=== PATIENT | male | born 2000 | race Two or more races ===

== ENCOUNTER 2019-11-13 15:39 | Emergency (ER) | payer MEDICAID ==
[2019-11-13] MEDS ORDERED: KETOROLAC 60 MG/2 ML VIAL IM STA (16:05)
--- NOTE | 2019-11-13 16:08 | ED Physician Documentation ---
PD HPI HEENT - Stated complaint Stated Complaint: MOUTH PX, SELBY - Chief complaint Chief Complaint: Heent - History obtained from History obtained from: Patient - History of Present Illness Timing - onset: How many weeks ago (3-4) Timing - duration: Weeks (3-4) Timing - details: Gradual onset Location: Tooth, Other (Headache) Associated symptoms: Trismus, Facial swelling (Intermittent), Headache. No: Fever, Congestion, Rhinorrhea Recently seen: Not recently seen - Additional information Additional information: This is a 19-year-old presents with complaints that he has a headache and tooth pain to the point that he cannot eat or sleep for the past several nights. He has been having trouble with his teeth for 3 weeks to a month he has been taking Advil and "basic painkillers" that has not seemed to help at all. He has a chipped tooth on his right bottom ridge. He also noted some bruising to the gums on the left side he does not know where that came from. Patient had a Put on a left mandibular molar several years ago. He subsequently developed kind of a cyst or pimple on the left jawline they tried to do surgery on it at [facility] but it is been persistently draining since that time and that is been about 2 years. He is never followed back up with a dentist or had further imaging done on his jaw since then. He does have a history of migraines but says this headache is different migraines are always on the right side this is gone across the back of his neck. Has not been nauseous or had any vomiting. No fever. [place] a little lightheaded and almost passed out in the shower this morning. Review of Systems Constitutional: denies: Fever Eyes: denies: Loss of vision Ears: reports: Loss of hearing (States he has difficulty hearing out of the left ear.) Nose: denies: Rhinorrhea / runny nose, Congestion Throat: reports: Dental pain / toothache GI: denies: Nausea, Vomiting Musculoskeletal: reports: Neck pain Neurologic: reports: Near syncope PD PAST MEDICAL HISTORY - Past Surgical History Past Surgical History: No - Present Medications Home Medications: Ambulatory Orders Medication Instructions Recorded Confirmed Amoxicillin 500 mg PO TID #30 capsule 11/13/19 Cyclobenzaprine [Flexeril] 10 mg PO TID PRN #10 tablet 11/13/19 - Allergies Allergies/Adverse Reactions: Allergies Allergy/AdvReac Type Severity Reaction Status Date / Time No Known Drug Allergies Allergy Verified 11/13/19 15:46 - Social History Does the pt smoke?: No Smoking Status: Never smoker Does the pt drink ETOH?: No Does the pt have substance abuse?: No - Immunizations Immunizations are current?: Yes - POLST Patient has POLST: No PD ED PE NORMAL - Vitals Vital signs reviewed: Yes - General General: Alert and oriented X 3, No acute distress, Well developed/nourished - HEENT HEENT: Atraumatic, PERRL, EOMI, Ears normal, Moist mucous membranes, Other (Patient has enlarged tonsils but there is no erythema or exudate. There is a chipped molar on the right third from the back that has a filling in it. The there is a left molar third from the back of the mandibular ridge that has a cap on it and there is a lot of gingival inflammation and swelling adjacent to the And there is some purple discoloration between that tooth and the one behind it consistent with bruising. Looks like there may be a little bit of pus making its way up between the gumline and the cap. Along the patient's left jaw there is a draining hole that you can express thick pus out of. 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 Patient was reassured. He will be started on amoxicillin. I am in a give him a prescription for some Flexeril to see if that will help him sleep some of this may be musculoskeletal with the insertion across the occipital ridge of cervical muscles. I impressed upon him that he needs definitive repair of this what I believed to be a draining fistula from a dental abscess on his left jaw and he states understanding. Departure - Departure Disposition: 01 Home, Self Care Clinical Impression: Dental abscess Headache Qualifiers: Headache type: unspecified Headache chronicity pattern: acute headache Intractability: not intractable Qualified Code(s): R51 - Headache Condition: Good Instructions: ED Abscess Dental Follow-Up: [facility] [Provider Group] Prescriptions: Amoxicillin 500 mg PO TID #30 capsule Cyclobenzaprine [Flexeril] 10 mg PO TID PRN #10 tablet PRN Reason: Spasms Comments: Take the amoxicillin as prescribed 3 times a day. Salt water swishes in your mouth after each meal and before bedtime. Take ibuprofen every 8 hours 3 to 4 tablets [id number] with food for pain. Take the Flexeril at night to help you sleep if you are having pain across the back of your head. Apply ice to the back of the neck at the base of the skull. It is essential that you follow- up with a dentist for definitive repair and dental imaging to see if this is a dental abscess that is draining out onto the skin. If that is the case it will not get better until it is surgically corrected. Discharge Date/Time: 11/13/19 17:06
--- NOTE | 2019-11-13 16:36 | CT Report ---
Reason: headache Procedure Date: 11/13/2019 Accession Number: [id number] / [id number] Procedure: CT - HEAD WO CPT Code: Final Report FULL RESULT: EXAM: CT HEAD EXAM DATE: 11/13/2019 04:27 PM. CLINICAL HISTORY: 19-year-old male. Headache. COMPARISON: None. TECHNIQUE: Multiaxial CT images were obtained from the foramen magnum to the vertex. Reformats: Sagittal and coronal. IV contrast: None. In accordance with CT protocol optimization, one or more of the following dose reduction techniques were utilized for this exam: automated exposure control, adjustment of mA and/or KV based on patient size, or use of iterative reconstructive technique. FINDINGS: Parenchyma: No intraparenchymal hemorrhage. No evidence of mass, midline shift, or CT findings of infarction. Milner-white differentiation is distinct. Extraaxial Spaces: Normal for age. No subdural or epidural collections identified. Ventricles: Normal in size and position. Sinuses and Orbits: Imaged paranasal sinuses, orbits, and mastoids show no significant abnormality. Bones: No evidence of fracture or calvarial defect. Other: None. IMPRESSION: No CT evidence of acute intracranial abnormality, specifically no CT evidence of acute infarct, intracranial hemorrhage, mass effect, midline shift, or hydrocephalus. RADIA
[2019-11-13 17:06] VITALS: BP 120/65
== END 2019-11-13 17:06 | disposition home or self-care (01) ==
LOC: ED 15:39
DX: K04.7 Periapical abscess without sinus (principal); R51 Headache
CPT/HCPCS: 70450; 96372; 99284